=== PATIENT | male | born 1950 | race Caucasian/White ===

== ENCOUNTER → 2016-08-05 | Outpatient (CLI) | payer BC ==
[2016-08-05 10:53] LABS: BASO ABS # 0.06 K/uL (0-0.2); COMPLETE YES; EOS % 2.3 %; IG% 0.3 %; LYMPH % 31.6 %; LYMPH ABS # 1.94 K/uL (1.2-3.4); MEAN CELL VOLUME 92.3 fL (80-100); MEAN CORPUSCULAR HEMOGLOBIN 30.7 pg (25-34); MEAN CORPUSCULAR HGB CONC 33.3 g/dl (32-36); MONO % 9.6 %; NEUT % 55.2 %; PLATELET COUNT 342 K/uL (130-400); RED BLOOD COUNT 4.66 M/uL (4.7-6.1); WHITE BLOOD COUNT 6.14 K/uL (4.8-10.8)
[2016-08-05 11:26] LABS: BLOOD UREA NITROGEN 15 mg/dl (7-18); BUN/CREATININE RATIO 16.5 (10-20); CALCIUM 8.3 mg/dl (8.5-10.1); CARBON DIOXIDE 25 mmol/L (21-32); CHLORIDE 108 mmol/L (98-107); CREATININE 0.93 mg/dl (0.60-1.40); GLUCOSE 100 mg/dl (70-99); POTASSIUM 4.3 mmol/L (3.5-5.1); SODIUM 140 mmol/L (136-145)
--- NOTE | 2016-08-10 12:39 | CODING QUERY MEDICAL NECESSITY ---
SUPPORTING DIAGNOSIS NEEDED A supporting diagnosis is required for the test/procedure performed on this patient in order for us to be reimbursed by the patient's insurance. Please provide a supporting diagnosis for the following test/procedure listed below next to the test name along with your signature. *If there is no additional diagnosis for this patient that would support the following test/procedure please document that below next to the test/procedure. Test(s)/Procedure(s) that require a supporting diagnosis: DOS 08/05 * Vitamin D DIAGNOSIS: Provider Signature: Date: Thank you Hue Eduardo Health Information Management Once completed, please kindly fax back to [phone] For questions please call [phone]
== END | disposition home or self-care (01) ==
LOC: C.LABBC 08:49
PROVIDERS: ATTEND Internal Medicine Geriatric Medicine
DX: Z00.00 Encounter for general adult medical examination without abnormal findings (principal); I10 Essential (primary) hypertension; D64.9 Anemia, unspecified

== ENCOUNTER → 2017-02-07 | Outpatient (CLI) | payer BC ==
[2017-02-07 13:30] LABS: BASO % 0.8 %; BASO ABS # 0.05 K/uL (0-0.2); COMPLETE YES; EOS % 1.8 %; HEMATOCRIT 44.2 % (42-52); IG% 0.2 %; LYMPH % 28.5 %; LYMPH ABS # 1.89 K/uL (1.2-3.4); MEAN CELL VOLUME 93.8 fL (80-100); MEAN CORPUSCULAR HEMOGLOBIN 30.4 pg (25-34); MEAN CORPUSCULAR HGB CONC 32.4 g/dl (32-36); MEAN PLATELET VOLUME 9.3 fL (7.4-10.4); NEUT % 59.7 %; PLATELET COUNT 354 K/uL (130-400); RED BLOOD COUNT 4.71 M/uL (4.7-6.1); WHITE BLOOD COUNT 6.63 K/uL (4.8-10.8)
[2017-02-07 13:53] LABS: BLOOD UREA NITROGEN 13 mg/dl (7-18); BUN/CREATININE RATIO 12.8 (10-20); CALCIUM 8.5 mg/dl (8.5-10.1); CARBON DIOXIDE 25 mmol/L (21-32); CHLORIDE 109 mmol/L (98-107); GLUCOSE 99 mg/dl (70-99); POTASSIUM 4.1 mmol/L (3.5-5.1); SODIUM 140 mmol/L (136-145)
[2017-02-07 13:58] LABS: CHOLESTEROL 188 mg/dl (0-200); CHOLESTEROL/HDL RATIO 3.5; HDL CHOLESTEROL 54 mg/dl; LDL CHOLESTEROL CALCULATED 119 mg/dl; TRIGLYCERIDES 74 mg/dl (0-150); VERY LOW DENSITY LIPOPROT CALC 15 mg/dl
== END | disposition home or self-care (01) ==
LOC: C.LABBC 09:53
PROVIDERS: ATTEND Internal Medicine Geriatric Medicine
DX: Z11.59 Encounter for screening for other viral diseases (principal); N40.0 Benign prostatic hyperplasia without lower urinary tract symptoms; I10 Essential (primary) hypertension; I65.29 Occlusion and stenosis of unspecified carotid artery; D64.9 Anemia, unspecified; E78.5 Hyperlipidemia, unspecified

== ENCOUNTER → 2017-08-18 | Outpatient (CLI) | payer BC ==
[2017-08-18 14:25] LABS: BASO ABS # 0.07 K/uL (0-0.2); EOS % 2.1 %; EOS ABS # 0.14 K/uL (0-0.5); HEMATOCRIT 41.9 % (42-52); HEMOGLOBIN 14.1 g/dL (14.0-18.0); IG# 0.02 K/uL (0.00-0.02); LYMPH % 31.3 %; MEAN CELL VOLUME 91.9 fL (80-100); MEAN CORPUSCULAR HEMOGLOBIN 30.9 pg (25-34); MEAN CORPUSCULAR HGB CONC 33.7 g/dl (32-36); MEAN PLATELET VOLUME 9.2 fL (7.4-10.4); MONO % 9.7 %; MONO ABS # 0.65 K/uL (0.11-0.59); NEUT % 55.6 %; NEUT ABS # 3.74 K/uL (1.4-6.5); PLATELET COUNT 344 K/uL (130-400); RED CELL DISTRIBUTION WIDTH CV 13.6 % (11.5-14.5); RED CELL DISTRIBUTION WIDTH SD 45.5 fL (36.4-46.3); WHITE BLOOD COUNT 6.72 K/uL (4.8-10.8)
[2017-08-18 15:27] LABS: BLOOD UREA NITROGEN 18 mg/dl (7-18); CALCIUM 8.5 mg/dl (8.5-10.1); CARBON DIOXIDE 27 mmol/L (21-32); CREATININE 1.07 mg/dl (0.60-1.40); GLUCOSE 98 mg/dl (70-99); POTASSIUM 4.2 mmol/L (3.5-5.1); SODIUM 138 mmol/L (136-145)
== END | disposition home or self-care (01) ==
LOC: C.LABBC 09:18
PROVIDERS: ATTEND Internal Medicine Geriatric Medicine
DX: I10 Essential (primary) hypertension (principal); G43.909 Migraine, unspecified, not intractable, without status migrainosus; I65.29 Occlusion and stenosis of unspecified carotid artery; R97.20 Elevated prostate specific antigen [PSA]; D64.9 Anemia, unspecified; E78.5 Hyperlipidemia, unspecified

== ENCOUNTER → 2017-10-03 | Day surgery (SDC) | payer BC ==
[2017-09-21 16:36] VITALS: Ht 180.3 cm; Wt 106.8 kg
[~2017-10-03] VITALS: Ht 180.3 cm; Wt 106.8 kg
[~2017-10-03] MED LIST: ASPI81TA28 PO; CETI10TA84 PO; CHOL2000 PO; COEN100C7 PO; CYAN10005 PO; FLUT50SP45 NAE; LIDOCAINE HCL 2% 2 ML VIAL (20MG/ML) ONE; LISI20TA3 PO; LYCO10CA PO; MIDAZOLAM HCL 1 MG/ML 2ML VIAL ONE; MISC1CAP58 PO; NABU500T3 PO; PROPOFOL IV EMULSION 10 MG/ML 20 ML VIAL ONE; SELE200T2 PO; SODIUM CHLORIDE 0.9% 500ML 500 ML IV ONE; VERA120C2 PO; VERA240C2 PO; ZINC1TAB PO
--- NOTE | 2017-10-03 10:15 | Endo History and Physical ---
History & Physical Date of Service: October 03, 2017. Chief Complaint: SCREENING Referring Physician: DR Lidia VANG History of Present Illness 67 yo CM who presents for screening colonoscopy. Past Surgical History Hx Cardiac Surgery: Yes (R CAROTID ARTERY-BLOCKAGE, 05/2003-[facility]) Hx Internal Defibrillator: No Hx Pacemaker: No Hx Abdominal Surgery: Yes (2009-UMBILICIAL HERNIA REPAIR) Hx of Implantable Prosthesis: No Hx Cancer Surgery: No Hx Thoracic Surgery: No Hx Orthopedic: No Hx Urinary Tract Surgery: No Family History IBD Social History Smoking Status: Former Smoker Hx Substance Use: No Hx Alcohol Use: No Allergies Coded Allergies: Codeine (Verified Allergy, Unknown, RASH/HIVES, 10/03/17) Uncoded Allergies: CONTRASTMEDIA (Allergy, Mild, HEADACHE, 06/19/09) Current Medications Reported Home Medications Medications Dose Route/Sig Max Daily Dose Days Date Category Verapamil Hcl Er (Verapamil Hcl) 120 Mg Cap 1 Tab PO HS 09/21/17 Reported Zinc (Zinc Gluconate) 50 Mg Tab 1 Tab PO DAILY 09/21/17 Reported Vitamin D3 (Cholecalciferol) 2,000 Unit Cap 1 Cap PO DAILY 30 09/21/17 Reported Vitamin B-12 (Cyanocobalamin) 1,000 Mcg Tab 1,000 Mcg PO DAILY 09/21/17 Reported Verapamil Hcl Er (Verapamil Hcl) 240 Mg Cap 1 Cap PO QAM 30 09/21/17 Reported Selenimin-200 (Selenium) 200 Mcg Tab 1 Tab PO DAILY 09/21/17 Reported Relafen (Nabumetone) 500 Mg Tab 500 Mg PO DAILY PRN 09/21/17 Reported Lycopene 10 Mg Cap 1 Cap PO DAILY 09/21/17 Reported Lutein 20 (Misc Natural Products) 1 Cap Cap 1 Tab PO DAILY 09/21/17 Reported Prinivil (Lisinopril) 20 Mg Tab 1 Tab PO BID 30 09/21/17 Reported Allergy Nasal [place] 24 Ho (Fluticasone Propionate (Nasal)) 50 Mcg/Act Spr 2 Sprays ANAYA DAILY PRN 09/21/17 Reported Coq10 (Coenzyme Q10 (Ubidecarenone)) 100 Mg Cap 1 Tab PO DAILY 09/21/17 Reported Aspirin Ec (Aspirin) 81 Mg Tab 81 Mg PO DAILY 09/21/17 Reported Vital Signs Weight (Kilograms): 106.82 Height (Feet): 5 Height (Inches): 11 Date Time Temp Pulse Resp B/P (MAP) Pulse Ox O2 Delivery O2 Flow Rate FiO2 10/03/17 09:41 37.0 78 18 168/97 (120) 95 Room Air Physical Exam General Appearance: WD/WN, no apparent distress Respiratory/Chest: Auscultation: breath sounds normal Cardiovascular: Heart Auscultation: RRR Abdomen: Bowel Sounds: normal Inspection & Palpation: soft, non-distended, no tenderness, guarding & rebound Assessment and Plan Assessment: 67 yo CM who presents for screening colonoscopy. Plan: Proceed with colonoscopy.
--- NOTE | 2017-10-03 10:56 | GI REPORT ---
Patient Name: Fernando Carmichael Procedure Date: 10/03/2017 9:59 AM Date of : 1950 Admit Type: Outpatient Age: 67 Gender: Male Attending MD: Eduardo Rizzo DO Procedure: Colonoscopy Providers: Eduardo Rizzo DO Referring MD: Alex Krueger Indications: Screening for colorectal malignant neoplasm Medicines: Monitored Anesthesia Care Complications: No immediate complications. Estimated Blood Loss: Estimated blood loss: none. Procedure: Pre-Anesthesia Assessment: - Prior to the procedure, a History and Physical was performed, and patient medications and allergies were reviewed. The patient's tolerance of previous anesthesia was also reviewed. The risks and benefits of the procedure and the sedation options and risks were discussed with the patient. All questions were answered, and informed consent was obtained. Prior Anticoagulants: The patient has taken aspirin, last dose was 14 days prior to procedure. ASA Grade Assessment: III - A patient with severe systemic disease. After reviewing the risks and benefits, the patient was deemed in satisfactory condition to undergo the procedure. After I obtained informed consent, the scope was passed under direct vision. Throughout the procedure, the patient's blood pressure, pulse, and oxygen saturations were monitored continuously. The scope was introduced through the anus and advanced to the terminal ileum. The colonoscopy was performed without difficulty. The patient tolerated the procedure well. The quality of the bowel preparation was good. The terminal ileum, ileocecal valve, appendiceal orifice, and rectum were photographed. Findings: The perianal and digital rectal examinations were normal. Multiple small-mouthed diverticula were found in the sigmoid colon. Non-bleeding internal hemorrhoids were found during retroflexion. The hemorrhoids were small. Impression: - Diverticulosis in the sigmoid colon. - Non-bleeding internal hemorrhoids. - No specimens collected. Recommendation: - Resume previous diet. - Continue present medications. - Repeat colonoscopy in 5 years for surveillance. - Return to primary care physician as previously scheduled. Eduardo Rizzo DO 10/03/2017 10:55:49 AM This report has been signed electronically. Note Initiated On: 10/03/2017 9:59 AM Number of Addenda: 0 I attest to the content of the Intraoperative Record and orders documented therein, exceptions below {[id number]}
--- NOTE | 2017-10-03 10:57 | Discharge Instructions ---
Endoscopy Patient Instructions Date / Procedure(s) Performed October 03, 2017. Colonoscopy Allergy Information Coded Allergies: Codeine (Verified Allergy, Unknown, RASH/HIVES, 10/03/17) Uncoded Allergies: CONTRASTMEDIA (Allergy, Mild, HEADACHE, 06/19/09) Discharge Date / Findings October 03, 2017. Diverticulosis Internal hemorrhoids Medication Instructions Stopped Medication(s): ASPIRIN 81MG 09/19/17 OK to resume all medications today as prescribed Reported Home Medications Medications Dose Route/Sig Max Daily Dose Days Date Category Verapamil Hcl Er (Verapamil Hcl) 120 Mg Cap 1 Tab PO HS 09/21/17 Reported Zinc (Zinc Gluconate) 50 Mg Tab 1 Tab PO DAILY 09/21/17 Reported Vitamin D3 (Cholecalciferol) 2,000 Unit Cap 1 Cap PO DAILY 30 09/21/17 Reported Vitamin B-12 (Cyanocobalamin) 1,000 Mcg Tab 1,000 Mcg PO DAILY 09/21/17 Reported Verapamil Hcl Er (Verapamil Hcl) 240 Mg Cap 1 Cap PO QAM 30 09/21/17 Reported Selenimin-200 (Selenium) 200 Mcg Tab 1 Tab PO DAILY 09/21/17 Reported Relafen (Nabumetone) 500 Mg Tab 500 Mg PO DAILY PRN 09/21/17 Reported Lycopene 10 Mg Cap 1 Cap PO DAILY 09/21/17 Reported Lutein 20 (Misc Natural Products) 1 Cap Cap 1 Tab PO DAILY 09/21/17 Reported Prinivil (Lisinopril) 20 Mg Tab 1 Tab PO BID 30 09/21/17 Reported Allergy Nasal [place] 24 Ho (Fluticasone Propionate (Nasal)) 50 Mcg/Act Spr 2 Sprays ANAYA DAILY PRN 09/21/17 Reported Coq10 (Coenzyme Q10 (Ubidecarenone)) 100 Mg Cap 1 Tab PO DAILY 09/21/17 Reported Aspirin Ec (Aspirin) 81 Mg Tab 81 Mg PO DAILY 09/21/17 Reported Provider Instructions Activity Restrictions - No exercising or heavy lifting for 24 hours. - Do not drink alcohol the day of the procedure. - Do not drive a car or operate machinery until the day after the procedure. - Do not make any important decisions or sign important papers in 24 hours after the procedure. Following Day: - Return to full activity which may include returning to work/school. Diet Start your diet with liquids and light foods (jello, soup, juice, toast). Then eat your usual diet if not nauseated. Treatment For Common After Affects For mild abdominal pain, bloating, or excessive gas: - Rest - Eat lightly - Lie on right side Follow-Up Information Follow-up with DR Lidia VANG as scheduled Anesthesia Information What You Should Know You have had a procedure that required some medicine to reduce anxiety and discomfort. This treatment is called moderate sedation. After receiving the treatment, you may be sleepy, but you will be able to breathe on your own. The effects of the treatment may last for several hours. Follow these instructions along with Activity/Diet recommendations noted above: * Do NOT do anything where dizziness or clumsiness would be dangerous. * Rest quietly at home today, then you can be up and about tomorrow. * Have a responsible person stay with you the rest of today. * You may have had an I.V. today. If so, you may take the dressing off later today. Recommendations Call your doctor if: * Trouble breathing * Continuous vomiting for more than 24 hours * Temperature above 101 degrees * Severe abdominal pain or bloating * Pain not relieved by pain medicine ordered * There is increased drainage or redness from any incision * A large amount of rectal bleeding greater than 2-3 tablespoons. (If you had a polyp/s removed or have hemorrhoids, a small amount of blood - from the rectum is to be expected.) * You have any unanswered questions or concerns. IN THE EVENT OF A SERIOUS EMERGENCY, GO TO THE NEAREST EMERGENCY ROOM Your discharge instructions were prepared by provider Eduardo Rizzo. Patient Instructions Signature Page Fernando Carmichael Patient (or Guardian) Signature/Date: I have read and understand the instructions given to me by my caregivers. Caregiver/RN/Doctor Signature/Date: The above-named patient and/or guardian has received patient instructions on this date. + Original Patient Signature Page (only) stays with chart. Please make copy for patient.
--- NOTE | 2017-10-03 11:06 | Anesthesiology Progress Note ---
Anesthesia Post Op Note Date & Time October 03, 2017 at 11:06 Vital Signs Pain Intensity: 0 Vital Signs Past 12 Hours Date Time Temp Pulse Resp B/P (MAP) Pulse Ox O2 Delivery O2 Flow Rate FiO2 10/03/17 10:50 75 16 135/71 (92) 16 Room Air 10/03/17 09:41 37.0 78 18 168/97 (120) 95 Room Air Notes Mental Status: alert / awake / arousable, participated in evaluation Pt Amnestic to Procedure: Yes Nausea / Vomiting: adequately controlled Pain: adequately controlled Airway Patency, RR, SpO2: stable & adequate BP & HR: stable & adequate Hydration State: stable & adequate Anesthetic Complications: no major complications apparent
[2017-10-03 11:52] VITALS: BP 132/78; PULSE 78; O2SAT 95
== END | disposition home or self-care (01) ==
LOC: C.GI 09:05
PROVIDERS: ATTEND Internal Medicine
DX: Z12.11 Encounter for screening for malignant neoplasm of colon (principal); K57.30 Diverticulosis of large intestine without perforation or abscess without bleeding; K64.8 Other hemorrhoids; I10 Essential (primary) hypertension; Z88.5 Allergy status to narcotic agent; Z88.8 Allergy status to other drugs, medicaments and biological substances; Z98.890 Other specified postprocedural states; Z79.899 Other long term (current) drug therapy; Z87.891 Personal history of nicotine dependence; Z79.82 Long term (current) use of aspirin

== ENCOUNTER 2020-12-29 07:50 | Inpatient (IN) ==
--- NOTE | 2020-12-22 10:30 | PAT Medication Instructions ---
Medication Instructions Date of Service December 22, 2020 Home Medications Medication Instructions Recorded lisinopril 20 mg tablet 20 mg PO BID #180 tab 04/27/20 verapamil 120 mg tablet,extended 120 mg PO HS #90 tab 04/27/20 release verapamil 240 mg tablet,extended 240 mg PO QAM #90 tab 04/27/20 release cyanocobalamin (vitamin B-12) 1,000 mcg tablet 1,000 mcg PO PM lutein 20 mg tablet 20 mg PO PM niacin 500 mg tablet 500 mg PO PM selenium 200 mcg capsule 200 mcg PO PM folic acid 400 mcg tablet 400 mcg PO PM lycopene 10 mg capsule 10 mg PO PM mometasone 0.1 % topical cream 1 appln TOP BID PRN zinc gluconate 50 mg tablet 50 mg PO PM naproxen sodium 220 mg capsule (Aleve) 220 mg PO BID PRN lisinopril 20 mg tablet 20 mg PO BID melatonin 5 mg tablet 5 mg PO HS verapamil 120 mg tablet,extended release 120 mg PO HS verapamil 240 mg tablet,extended release 240 mg PO QAM carica papaya (Papaya Enzyme) 4 tab PO TID cholecalciferol (vitamin D3) 50 mcg (2,000 unit) tablet 1,000 unit PO PM letty root 325 mg-pyridoxine HCl (vitamin B6) 25 mg capsule 1.5 cap PO QPM lysine 500 mg tablet (L-Lysine) 500 mg PO QPM resveratrol 250 mg capsule 250 mg PO QPM Quercetin Otc 500 mg PO QPM ASK your surgeon for instructions naproxen sodium 220 mg capsule (Aleve) 220 mg PO BID PRN STOP taking 2 weeks before surgery (or as soon as possible if surgery is within 2 weeks) lutein 20 mg tablet 20 mg PO PM selenium 200 mcg capsule 200 mcg PO PM lycopene 10 mg capsule 10 mg PO PM carica papaya (Papaya Enzyme) 4 tab PO TID letty root 325 mg-pyridoxine HCl (vitamin B6) 25 mg capsule 1.5 cap PO QPM lysine 500 mg tablet (L-Lysine) 500 mg PO QPM resveratrol 250 mg capsule 250 mg PO QPM Quercetin Otc 500 mg PO QPM STOP taking 48 hours before surgery niacin 500 mg tablet 500 mg PO PM STOP taking 24 hours before surgery mometasone 0.1 % topical cream 1 appln TOP BID PRN DO NOT take the morning of surgery lisinopril 20 mg tablet 20 mg PO BID Take morning of surgery With a small sip of water, OTHERWISE NOTHING TO EAT OR DRINK AFTER MIDNIGHT: verapamil 240 mg tablet,extended release 240 mg PO QAM Take evening before surgery cyanocobalamin (vitamin B-12) 1,000 mcg tablet 1,000 mcg PO PM folic acid 400 mcg tablet 400 mcg PO PM zinc gluconate 50 mg tablet 50 mg PO PM lisinopril 20 mg tablet 20 mg PO BID melatonin 5 mg tablet 5 mg PO HS verapamil 120 mg tablet,extended release 120 mg PO HS cholecalciferol (vitamin D3) 50 mcg (2,000 unit) tablet 1,000 unit PO PM Other Notes If you have any questions please call us at [phone] or [phone] or [phone] or [phone]
--- NOTE | 2020-12-25 09:52 | Anesthesiology Consultation ---
Date of Service December 25, 2020 Assessment & Plan (1) Encounter for pre-operative examination: - COVID screening: Per assessment on 12/25: Travel screen negative, no known COVID-19 positive contacts or current COVID-19 related symptoms. Surgeon arrang ing preop COVID testing (will be doing at [facility] 12/25). Awaiting results. - S/P Open ventral hernia repair (12/30/19): LMA#5, atraumatic at [facility] - PCP office visit (11/19/20): "right carotid restenoses: He has follow-up visit scheduled with vascular surgery later this month, which he plans to keep. He knows to go the emergency department with any new neurologic symptoms. vertebral stenosis: Follow-up with vascular surgery." - Vascular office visit (11/30/20): "History of R sided carotid artery stenosis underwent R CEA in 2013 presents to vascular surgery clinic for follow up today having undergone a CTA earlier this month. He initially presented November 12 out of concern for transient change in his vision (amaurosis episode) where he describes the area of his vision "between 7 and 9 oclock" when mera for a brief period before returning. He has since been asymptomatic and notes no complaints at this visit.. Of note, his CT performed prior to this visit showed multiple areas concerning for plaque ulceration with craters visible on the CT films.. Given his history, he would benefit from a re do of his carotid endarterectomy, however we did discuss the possibility of needing to potentially perform a transposition of either vein or PTFE should there be too much scar tissue that precludes completion of standard endarterectomy." - ASA instructions per surgeon/prescriber Chart Review Chart Review: Acceptable Risk for Surgery and Patient seen in Pre Admission Testing Teaching & Discussion Pre-Anesthesia Teaching/Discussion Notes: Instructed NPO after midnight before surgery,except medications with 15 cc of water. Medication instructions provided according to the [facility] guidelines. History Surgery Operation Date: 12/29/20 08:00 Proposed Procedures p Redo Right Carotid Endarterectomy, Possible Interposition Graft - Cong Manuel MD Height/Weight Height: 5 ft 10.5 in Weight: 104.8 kg Allergies Allergy/AdvReac Type Severity Reaction Status Date / Time codeine Allergy Mild Rash, hives Verified 12/23/20 09:04 homatropine Allergy Mild Rash Verified 12/23/20 09:04 [From Hycodan (with homatropin)] hydrocodone Allergy Mild Rash Verified 12/23/20 09:04 [From Hycodan (with homatropin)] amoxicillin AdvReac Intermediate Diarrhea, Verified 12/23/20 09:04 GI upset clavulanic acid AdvReac Intermediate Diarrhea, Verified 12/23/20 09:04 [From Augmentin] GI upset losartan AdvReac Intermediate Muscle Verified 12/23/20 09:04 cramping atorvastatin [From Lipitor] AdvReac Mild Myalgia Verified 12/23/20 09:04 omeprazole AdvReac Mild Sore Verified 12/23/20 09:04 "kidneys" (kidney crystals), cramping simvastatin [From Zocor] AdvReac Mild Myalgia Verified 12/23/20 09:04 Medications Home Medications Medication Instructions Recorded Confirmed Last Taken cyanocobalamin (vitamin B-12) 1,000 mcg PO PM tab 03/12/19 12/21/20 12/22/19 1,000 mcg tablet lutein 20 mg tablet 20 mg PO PM tab 03/12/19 12/21/20 12/22/19 niacin 500 mg tablet 500 mg PO PM 03/12/19 12/21/20 12/22/19 selenium 200 mcg capsule 200 mcg PO PM 03/12/19 12/21/20 12/22/19 folic acid 400 mcg tablet 400 mcg PO PM 03/13/19 12/21/20 12/29/19 19:00 lycopene 10 mg capsule 10 mg PO PM cap 05/01/19 12/21/20 12/29/19 mometasone 0.1 % topical cream 1 appln TOP BID PRN gm 05/01/19 12/21/20 12/26/19 zinc gluconate 50 mg tablet 50 mg PO PM 11/29/19 12/21/20 12/22/19 naproxen sodium 220 mg capsule 220 mg PO BID PRN 12/10/19 12/21/20 Unknown (Aleve) lisinopril 20 mg tablet 20 mg PO BID #180 tab 04/27/20 12/21/20 Unknown melatonin 5 mg tablet 5 mg PO HS 04/27/20 12/21/20 Unknown verapamil 120 mg tablet,extended 120 mg PO HS #90 tab 04/27/20 12/21/20 Unknown release verapamil 240 mg tablet,extended 240 mg PO QAM #90 tab 04/27/20 12/21/20 Unknown release carica papaya (Papaya Enzyme) 4 tab PO TID tab 10/27/20 12/21/20 Unknown cholecalciferol (vitamin D3) 50 1,000 unit PO PM #30 tab 10/27/20 12/21/20 Unknown mcg (2,000 unit) tablet letty root 325 mg-pyridoxine HCl 1.5 cap PO QPM cap 10/27/20 12/21/20 Unknown (vitamin B6) 25 mg capsule lysine 500 mg tablet (L-Lysine) 500 mg PO QPM 10/27/20 12/21/20 Unknown resveratrol 250 mg capsule 250 mg PO QPM 10/27/20 12/21/20 Unknown Quercetin Otc 500 mg PO QPM 12/21/20 12/21/20 Unknown aspirin 81 mg capsule 81 mg PO HS 12/25/20 12/25/20 Unknown Past Medical History Medical History Anemia Arteriosclerosis of carotid artery s/p Right CEA (2003) BPH without obstruction/lower urinary tract symptoms Chronic rhinitis Degenerative disc disease Lower back Dyslipidemia Elevated prostate specific antigen (PSA) declined Urology Evaluation Headache, migraine Hearing loss Right ear History of cataract History of COVID-19 Possible COVID > spouse was positive 07/22/20, pt at that time had symptoms of body aches, mild fever, night sweats, sore throat (pt tested negative ten days after symptoms onset) > symptoms resolved Hypertension Kidney stones Migraine Obesity Stomach ulcer 1989 No known hx of blood transfusion Exercise / Class Metabolic Activity II 4-5 Yardwork/Stairs/Walk up hill Past Family History Family History Mother , age 67 Osteoporosis Crohn's disease Cardiac disorder Myocardial infarction Father , age 77 Leukemia Cancer Lymphoma Brother Peripheral vascular disease Hypertension Grandmother (Maternal) Family history of diabetes mellitus Past Surgical History Surgical History History of carotid endarterectomy Right (2003) History of cataract surgery Right History of esophagogastroduodenoscopy (EGD) History of tonsillectomy 1952 History of tooth extraction History of umbilical hernia repair 2009 History of ventral hernia repair Open ventral hernia repair (12/30/19): LMA#5, atraumatic at [facility] Hx of colonoscopy 2019 Past Anesthesia History Other (Post-operative sweating with no fever after 2003 right CEA (CT). No similar issues with other surgeries/anesthesia. Had GA open ventral hernia repair at [facility] without issue.) Social History Smoking Status: Former smoker tobacco type: cigarettes Do You Dip or Chew Tobacco: No Smoking End Date: QUIT Hx Alcohol Use: No Hx Substance Use: No substance use type: does not use Review of Systems Patient denies chest pain, shortness of breath, dyspnea on exertion, fever, chills, cough, wheezing, palpitations. Physical Exam Vital Signs VITALS BP 145/77 P 59 TEMP 98.4 SP02 96%RA RESP 16 PHYSICAL Full cervical extension range of motion. Full TMJ range of motion. TMD 3 finger breaths (difficult to palpate) Mallampati Score 2 Dentition: intact Lungs: clear throughout to auscultation Cardiac: regular rate and rhythm, no murmurs noted Spine: normal Carotid arteries: negative bruit Extremities: no edema Lab Results Anesthesia Preop Results Results Anesthesia Widget: WBC 8.97 K/uL (4.8-10.8) 12/25/20 Hgb 13.4 g/dL (14.0-18.0) L 12/25/20 Hct 40.6 % (42-52) L 12/25/20 Plt 359 K/uL (130-400) 12/25/20 Na 139 mmol/L (136-145) 12/25/20 K 4.1 mmol/L (3.5-5.1) 12/25/20 Cl 108 mmol/L (98-107) H 12/25/20 CO2 25 mmol/L (21-32) 12/25/20 BUN 12 mg/dl (7-18) 12/25/20 Creat 0.88 mg/dl (0.6-1.4) 12/25/20 Glucose Level 85 mg/dl (70-99) 12/25/20 PT 9.8 Seconds (9.0-12.0) 12/25/20 PTT 25.2 Seconds (21.0-31.0) 12/25/20 INR 1.0 (0.9-1.1) 12/25/20 Blood Type O Positive 12/25/20 Antibody Screen NEGATIVE 12/25/20 Testing Electrocardiogram Date: 12/25/20 NSR at 65bpm. unconfirmed report. Chest X-Ray Date: 12/25/20 Findings: + NAD Echocardiogram Date: 11/13/20 EF 50 to 55%. No regional wall motion abnormality. Mild TR. Trace to mild OK. Mild aortic valve thickening. Other Testing Neck CTA (11/18/20): Approximately 50% focal stenosis within the distal right common carotid artery. No significant stenosis within the bilateral internal carotid arteries. Focal area of severe stenosis within the intracranial portion of the distal right vertebral artery without occlusion. The [id number] is widely patent. 4. There are 3 focal intimal flaps seen within the distal right common carotid artery, proximal right internal carotid artery, and proximal right external carotid artery. This could represent small focal incomplete chronic dissections versus penetrating ulcers.
[~2020-12-29 07:50] MED LIST changes: -ASPI81TA28 PO; +CEFAZOLIN 2,000 MG/15 ML SYR IV SCH; -CETI10TA84 PO; -CHOL2000 PO; -COEN100C7 PO; -CYAN10005 PO; -FLUT50SP45 NAE; -LIDOCAINE HCL 2% 2 ML VIAL (20MG/ML) ONE; -LISI20TA3 PO; +LR 15ML/HR IV SCH; -LYCO10CA PO; -MIDAZOLAM HCL 1 MG/ML 2ML VIAL ONE; -MISC1CAP58 PO; -NABU500T3 PO; -PROPOFOL IV EMULSION 10 MG/ML 20 ML VIAL ONE; -SELE200T2 PO; -SODIUM CHLORIDE 0.9% 500ML 500 ML IV ONE; -VERA120C2 PO; -VERA240C2 PO; -ZINC1TAB PO
--- NOTE | 2020-12-29 07:51 | History & Physical Report ---
Date of Service December 29, 2020 Assessment & Plan (1) Recurrent stenosis of right carotid artery: Plan: Patient for a redo right carotid endarterectomy. I have discussed the risks options and benefits of the procedure with the patient including to increase risk of local nerve injury. The patient understands the risks options and benefits and agrees to the procedure. History of Present Illness Chief Complaint: Restenosis of right carotid artery Primary Care Provider: Santana Dickinson DO Mr. Carmichael is an elderly male who presents to vascular surgery clinic as a new patient in consultation for right carotid artery restenosis noted on his annual carotid ultrasound, as well as symptoms of right eye amaurosis which occurred about 6 weeks ago. Patient underwent a right carotid endarterectomy with bovine [place] [address] Shailesh Richey. He states that that as far as he is aware, his ultrasounds since his procedure have been okay. His results from carotid ultrasound in October 2019 do not indicate any evidence of restenosis. His ultrasound from last week indicates right distal common carotid and bulb s tenosis of over 70% by velocity criteria. Patient states that he was doing his normal daily activities and developed a sudden onset of a veras shaped mera area around 7:00 in his right eye vision. He states that it lasted between 10 and 30 seconds, and then completely resolved. He states that he had symptoms of "tunnel vision" in his right eye before undergoing his carotid endarterectomy in 2003. He states this was similar but not exactly the same. He denies any other neurological concerns including unilateral headache, unilateral extremity weakness numbness or tingling, facial droop, difficulty speaking or swallowing, dizziness, other concerns. Allergies Allergy/AdvReac Type Severity Reaction Status Date / Time codeine Allergy Mild Rash, hives Verified 12/23/20 09:04 homatropine Allergy Mild Rash Verified 12/23/20 09:04 [From Hycodan (with homatropin)] hydrocodone Allergy Mild Rash Verified 12/23/20 09:04 [From Hycodan (with homatropin)] amoxicillin AdvReac Intermediate Diarrhea, Verified 12/23/20 09:04 GI upset clavulanic acid AdvReac Intermediate Diarrhea, Verified 12/23/20 09:04 [From Augmentin] GI upset losartan AdvReac Intermediate Muscle Verified 12/23/20 09:04 cramping atorvastatin [From Lipitor] AdvReac Mild Myalgia Verified 12/23/20 09:04 omeprazole AdvReac Mild Sore Verified 12/23/20 09:04 "kidneys" (kidney crystals), cramping simvastatin [From Zocor] AdvReac Mild Myalgia Verified 12/23/20 09:04 Home Medications Medication Instructions Recorded Confirmed Type cyanocobalamin (vitamin B-12) 1,000 mcg PO PM tab 03/12/19 12/21/20 History 1,000 mcg tablet lutein 20 mg tablet 20 mg PO PM tab 03/12/19 12/21/20 History niacin 500 mg tablet 500 mg PO PM 03/12/19 12/21/20 History selenium 200 mcg capsule 200 mcg PO PM 03/12/19 12/21/20 History folic acid 400 mcg tablet 400 mcg PO PM 03/13/19 12/21/20 History lycopene 10 mg capsule 10 mg PO PM cap 05/01/19 12/21/20 History mometasone 0.1 % topical cream 1 appln TOP BID PRN gm 05/01/19 12/21/20 History zinc gluconate 50 mg tablet 50 mg PO PM 11/29/19 12/21/20 History naproxen sodium 220 mg capsule 220 mg PO BID PRN 12/10/19 12/21/20 History (Aleve) lisinopril 20 mg tablet 20 mg PO BID #180 tab 04/27/20 12/21/20 Rx melatonin 5 mg tablet 5 mg PO HS 04/27/20 12/21/20 History verapamil 120 mg tablet,extended 120 mg PO HS #90 tab 04/27/20 12/21/20 Rx release verapamil 240 mg tablet,extended 240 mg PO QAM #90 tab 04/27/20 12/21/20 Rx release carica papaya (Papaya Enzyme) 4 tab PO TID tab 10/27/20 12/21/20 History cholecalciferol (vitamin D3) 50 1,000 unit PO PM #30 tab 10/27/20 12/21/20 History mcg (2,000 unit) tablet letty root 325 mg-pyridoxine HCl 1.5 cap PO QPM cap 10/27/20 12/21/20 History (vitamin B6) 25 mg capsule lysine 500 mg tablet (L-Lysine) 500 mg PO QPM 10/27/20 12/21/20 History resveratrol 250 mg capsule 250 mg PO QPM 10/27/20 12/21/20 History Quercetin Otc 500 mg PO QPM 12/21/20 12/21/20 History aspirin 81 mg capsule 81 mg PO HS 12/25/20 12/25/20 History Past Med/Surg History Medical History Anemia Arteriosclerosis of carotid artery s/p Right CEA (2003) BPH without obstruction/lower urinary tract symptoms Chronic rhinitis Degenerative disc disease Lower back Dyslipidemia Elevated prostate specific antigen (PSA) declined Urology Evaluation Headache, migraine Hearing loss Right ear History of cataract History of COVID-19 Possible COVID > spouse was positive 07/22/20, pt at that time had symptoms of body aches, mild fever, night sweats, sore throat (pt tested negative ten days after symptoms onset) > symptoms resolved Hypertension Kidney stones Migraine Obesity Stomach ulcer 1989 No known hx of blood transfusion Surgical History History of carotid endarterectomy Right (2003) History of cataract surgery Right History of esophagogastroduodenoscopy (EGD) History of tonsillectomy 1952 History of tooth extraction History of umbilical hernia repair 2009 History of ventral hernia repair Open ventral hernia repair (12/30/19): LMA#5, atraumatic at [facility] Hx of colonoscopy 2019 Family History Mother , age 67 Osteoporosis Crohn's disease Cardiac disorder Myocardial infarction Father , age 77 Leukemia Cancer Lymphoma Brother Peripheral vascular disease Hypertension Grandmother (Maternal) Family history of diabetes mellitus Social History Smoking Status: Former smoker Tobacco Type: Cigarettes Age Started Using Tobacco: 17; Age Quit Using Tobacco: 19; packs per day: 1; Years Smoked: 3; Second Hand Exposure: Yes (FATHER SMOKED/SMOKES AT WORK ); Hx Alcohol Use: No Hx Substance Use: No Preferred Language: Lao Communication Ability: Effective Visual Impairment: Limited Hearing Ability: Hard of Hearing 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 Member Required: No Beliefs That Will Affect Care: None marital status: Current Living Situation: Spouse current occupational status: retired 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 He is alert and oriented without any focal deficits. Head is normocephalic atraumatic, eyes are EOMI. Neck is supple nontender with midline trachea. Right neck surgical incision is visible and well-healed. He does have a faint bruit over his right carotid. His heart is regular, lungs are decreased throughout but clear. Abdomen is soft nontender with normoactive bowel sounds in all 4 quadrants. I do not appreciate a pulsatile mass. Brachial radial and femoral pulses are +3. Lower extremity distal pulses are +2. He has brisk capillary refill and no sign of distal ischemia
[2020-12-29] MEDS: LACTATED RINGER'S 1,000 ML IV SCH ×3 (09:02→18:12)
[2020-12-29] MEDS ORDERED: GLYCOPYRROLATE 0.2 MG/ML VIAL ONE (11:05)
[2020-12-29] MEDS ORDERED: ONDANSETRON INJ 2 MG/ML 2 ML VIAL ONE ×2 (11:05→15:26)
[2020-12-29] MEDS ORDERED: fentaNYL citrate 100 MCG/2 ML VIAL ONE (11:05)
[2020-12-29] MEDS ORDERED: NEOSTIGMINE METHYLSULFATE 1 MG/ML 10ML VIAL ONE (11:05)
[2020-12-29] MEDS ORDERED: DEXAMETHASONE SOD INJ 4 MG/ML VIAL ONE ×2 (11:05→15:26)
[2020-12-29] MEDS ORDERED: MIDAZOLAM HCL 1 MG/ML 2ML VIAL ONE (11:05)
[2020-12-29] MEDS ORDERED: PROPOFOL IV EMULSION 10 MG/ML 20 ML VIAL IV ONE (11:05)
[2020-12-29] MEDS ORDERED: LIDOCAINE 2% 2 ML VIAL/AMP(20MG/ML) INFIL ONE (11:05)
[2020-12-29] MEDS ORDERED: fentaNYL citrate 100 MCG/2 ML VIAL IV PRN (11:11)
[2020-12-29] MEDS ORDERED: ONDANSETRON INJ 2 MG/ML 2 ML VIAL IV PRN (11:11)
[2020-12-29] MEDS ORDERED: ATROPINE SULFATE 0.1 MG/ML 10ML SYR IV PRN (11:11)
[2020-12-29] MEDS ORDERED: LABETALOL HCL IV 5 MG/ML 20ML IV PRN (11:11)
--- NOTE | 2020-12-29 11:29 | History & Physical Bridge Note ---
Date of Service December 29, 2020 History & Physical Bridge Note I have examined the patient, reviewed the History & Physical and in the interval since the performance of the History & Physical I have noted the following changes of clinical significance: no changes noted
[2020-12-29] MEDS ORDERED: HEPARIN (PORCINE) 1000 UNIT/ML 10 ML (CATH LAB USE ONLY) ONE (11:42)
[2020-12-29] MEDS ORDERED: EPINEPHrine INJ 1 MG/ML AMP ONE (11:42)
[2020-12-29] MEDS ORDERED: BUPIVACAINE 0.5 % 5 MG/1 ML MPF 30ML VIAL ONE (11:42)
[2020-12-29] MEDS ORDERED: THROMBIN FOR SOLN 20000 UNIT KIT ONE (11:43)
[2020-12-29] MEDS ORDERED: GELATIN SPONGE SZ 100 ONE (11:43)
[2020-12-29] MEDS ORDERED: LIDOCAINE 1% LOCAL 20 ML VIAL ONE (11:43)
[2020-12-29] MEDS ORDERED: HEPARIN SOD (PORCINE) 1000 UNIT/ML ONE (15:04)
[2020-12-29] MEDS ORDERED: PHENYLEPHRINE HCL 10 MG/ML VIAL ONE (15:04)
[2020-12-29] MEDS ORDERED: PROTAMINE SULFATE 10 MG/ML 5 ML VIAL ONE (15:26)
[2020-12-29] MEDS ORDERED: SUGAMMADEX SODIUM 200 MG/2 ML VIAL IV ONE (15:38)
--- NOTE | 2020-12-29 15:50 | Operative Report ---
Post Operative Report Pre & Post Diagnosis Operation Date: 12/29/20 10:20 Pre-Op Diagnosis: Recurrent Right Internal Carotid Artery Stenosis Post-Op Diagnosis: Recurrent Right Internal Carotid Artery Stenosis I identified the patient and participated in the time-out.: Yes Procedure Operation Date: 12/29/20 10:20 Actual Procedures p Redo Right Carotid Endarterectomy with Gortex Interposition Graft(Right) - Cong Manuel MD Surgeon Cong Manuel MD Test Worker Radha Hutchins MD ; Gladys RUFFIN Estimated Blood Loss 175 Findings Consistent with Post-Op Diagnosis Specimens right carotid plaque Disposition Accompanied Patient To Recovery: No Indications This is a 70M with history of carotid artery stenosis and prior right carotid endarterectomy several years ago. He has recurrent stenosis of his right carotid artery. Description of Procedure The patient was taken to the operating room and placed in supine position. The patient's identity and surgical procedure were verified. After general anesthesia was accomplished the right side of the neck was prepped and draped in a sterile manner. A team timeout was performed including confirmation of the patient's identity, surgical site, and surgical procedure. A longitudinal neck incision was then made over the scar in the right neck from the patient's prior carotid endarterectomy, coursing along the medial border of the sternocleidomastoid muscle. The incision was taken down through the platysmal layer. The common carotid artery was then seen. The carotid arteries were encased in dense fibrous tissue given the patient's prior endarterectomy. The common carotid artery was dissected free down to the omohyoid muscle. The dissection was carried upward until the external carotid artery was seen. The external carotid was slung with a red rubber vessel loop. Next the dissection was carried up along the internal carotid artery.The suture line from the previous patch was seen. The hypoglossal nerve was seen and preserved. The dissection around the internal carotid artery was a difficult dissection as again dense scar tissue was present. While trying to get around the internal carotid artery proximally a defect was created in the posterolateral aspect of the internal carotid artery. The patient was then systemically heparinized and vascular clamps were applied to the internal, common, and external carotid arteries. A longitudinal arteriotomy was started on the common carotid artery and extended upward along the internal carotid artery. There was calcified plaque and intimal hyperplasia of the internal carotid artery origin causing narrowing. In the distal common carotid artery there was calcific plaque with intramural hemorrhage. A Sundt shunt was then placed in the internal, followed by the common carotid artery and held in place with Romeo clamps. There was good back bleeding seen from the internal carotid artery. The endarterectomy was then started in the appropriate plane on the common carotid artery. The endarterectomy was then carried up along the internal carotid artery till a nice feathering breakoff point was accomplished beyond the end of the plaque. The endarterectomy was then carried down further on the common carotid artery. At end of the arteriotomy, the plaque was then transected. Under loop magnification, all loose debris and flaps were removed. There was no distal flap seen at the end of the endarterectomy site. Given the location of the defect in the internal carotid on the posterolateral wall and the vessel narrowing given the intimal hyperplasia, the decision was made to perform interposition grafting from the common carotid artery to the internal carotid artery. The internal carotid artery was transected distal to the area of intimal hyperplasia, thus distal to the prior patch. A 6mm gore g raft was sewn in place using 6-0 prolene in a running fashion. Then, the anastomosis to the common carotid artery was performed in a similar fashion. Prior to completing the anastomosis on the common carotid artery, the doppler shunt was removed and the internal and common carotid arteries were reclamped. Backbleeding and forward bleeding was allowed to occur. The flow surface was irrigated with heparinized saline. The final few sutures were then placed and securely tied. The clamp was then removed off the common carotid artery. The clamp was then removed from the internal carotid artery. Bleeding was noted at the posterior aspect of the distal anastomosis. This could not be controlled with repair suture, so the patient was again heparinized and clamps were re-applied to the internal and common carotid arteries. The distal anastomosis was transected and the edges of the internal carotid artery stump were freshened. There was enough distance left in the graft so the anastomosis was repeated with 6-0 prolene in a running fashion. Prior to completing the anastomosis, the doppler shunt was removed and the internal and common carotid arteries were reclamped. Backbleeding and forward bleeding was allowed to occur. The flow surface was irrigated with heparinized saline. The final few sutures were then placed and securely tied. The clamp was then removed off the common carotid artery. The clamp was then removed from the internal carotid artery. Good distal flow was seen. Adequate hemostasis was seen of the anastomoses. The wound was inspected and adequate hemostasis was obtained. The wound was irrigated with antibiotic solution. It was then closed with a running 3-0 Vicryl suture for the platysmal layer and a 4-0 subcuticular Vicryl suture for the skin edges. Dermabond was used for dressing. The patient left the operating room in satisfactory condition and tolerated the procedure well. At the conclusion of the case, all instrument, sponge, and needle counts were correct. The patient tolerated the procedure well and without immediate complication. The patient was taken to the recovery room in satisfactory condition. Dr. Manuel was present and scrubbed for the entirety of the procedure. I attest to the content of the Intraoperative Record and any orders documented therein. Any exceptions are noted below.
--- NOTE | 2020-12-29 15:53 | Post Operative Brief Note ---
Immediate Post Op Note v1 Date of Surgery December 29, 2020 Pre & Post Diagnosis Operation Date: 12/29/20 10:20 Pre-Op Diagnosis: Recurrent Right Internal Carotid Artery Stenosis Post-Op Diagnosis: Recurrent Right Internal Carotid Artery Stenosis I identified the patient and participated in the time-out.: Yes Procedure Operation Date: 12/29/20 10:20 Actual Procedures p Redo Right Carotid Endarterectomy with Gortex Interposition Graft(Right) - Cong Manuel MD Surgeon Cong Manuel MD Survival Specialist Radha Hutchins MD ; Gladys RUFFIN Estimated Blood Loss 175 Findings Consistent with Post-Op Diagnosis Anesthesia Type General Complications none Disposition Accompanied Patient To Recovery: No Disposition: Recovery Room
[2020-12-29] MEDS ORDERED: LABETALOL HCL IV 5 MG/ML 20ML IV ONE (16:32)
[2020-12-29] MEDS ORDERED: MoRPHine SULFATE 4 MG/ML 1 ML CARP\\VIAL IV PRN (17:38)
[2020-12-29] MEDS ORDERED: MOMETASONE FUROATE 0.1% CR 15 GM TUBE EXT PRN (17:38)
--- NOTE | 2020-12-29 17:47 | Anesthesiology Progress Note ---
Date of Service December 29, 2020 Anesthesia Post Procedure Vital Signs Vital Signs: Temp Pulse Pulse Resp BP BP BP 12/29/20 17:31 97.5 F L 149/83 H 12/29/20 17:10 68 18 149/64 H 12/29/20 17:00 97.5 F L 65 15 169/84 H 12/29/20 16:50 66 15 172/81 H 12/29/20 16:40 68 20 165/92 H 12/29/20 16:30 67 14 166/83 H 12/29/20 16:21 97.0 F L 68 14 171/85 H 12/29/20 08:44 99.0 F 73 18 171/91 H 174/95 H BP Pulse Ox 12/29/20 17:31 97 12/29/20 17:10 162/76 H 98 12/29/20 17:00 169/73 H 99 12/29/20 16:50 168/74 H 99 12/29/20 16:40 172/80 H 100 12/29/20 16:30 163/78 H 100 12/29/20 16:21 100 12/29/20 08:44 96 Transfer of Care Handoff Completed per policy Notes Mental Status: alert / awake / arousable and participated in evaluation Patient Amnestic to Procedure: Yes Nausea / Vomiting: adequately controlled Pain: adequately controlled Airway Patency, RR, SpO2: stable & adequate BP & HR: stable & adequate Hydration State: stable & adequate Anesthetic Complications: no major complications apparent and Pt Satisfied with anesthetic care Notes: The patient had a left facial droop, tongue deviation to the right, and left upper extremity weakness. Dr. Manuel was at bedside and aware. The patient was otherwise stable to be discharged from PACU.
[2020-12-29] MEDS ORDERED: NAPROXEN 250 MG TAB PO PRN (17:51)
[2020-12-29] MEDS: methylPREDNISolone 10 MG in SYRINGE 0 ML IV SCH ×2 (18:14→23:25)
[2020-12-29 18:42] LABS: Basophils # (auto) 0.02 K/uL (0-0.2); Basophils % (auto) 0.1 %; Eosinophils # (auto) 0.01 K/uL (0-0.5); Eosinophils % (auto) 0.1 %; Hematocrit (blood only) 38.1 % (42-52); Hemoglobin 12.9 g/dL (14.0-18.0); Immature Granulocytes # (auto) 0.04 K/uL (0.00-0.02); Immature Granulocytes % (auto) 0.2 %; Lymphocytes # (auto) 1.77 K/uL (1.2-3.4); Lymphocytes % (auto) 10.4 %; Mean Corpuscular Hemoglobin 31.1 pg (25-34); Mean Corpuscular Hgb Conc 33.9 g/dL (32-36); Mean Corpuscular Volume 91.8 fL (80-100); Mean Platelet Volume 8.2 fL (7.4-10.4); Monocytes # (auto) 0.29 K/uL (0.11-0.59); Monocytes % (auto) 1.7 %; Neutrophils # (auto) 14.82 K/uL (1.4-6.5); Neutrophils % (auto) 87.5 %; Platelet Count 311 K/uL (130-400); RDW Coefficient of Variation 13.3 % (11.5-14.5); RDW Standard Deviation 44.8 fL (36.4-46.3); Red Blood Count 4.15 M/uL (4.7-6.1); White Blood Count 16.95 K/uL (4.8-10.8)
[2020-12-29] MEDS: traMADol HCL 50 MG TABLET PO PRN ×2 (19:49→23:53)
--- NOTE | 2020-12-29 20:11 | Critical Care Consultation ---
Date of Consultation December 29, 2020 History of Present Illness Reason for Consultation: Post carotid endarterectomy monitoring Attending Physician: Cong Manuel MD History of Present Illness 70-year-old Allergies Allergy/AdvReac Type Severity Reaction Status Date / Time codeine Allergy Mild Rash, hives Verified 12/29/20 08:42 homatropine Allergy Mild Rash Verified 12/29/20 08:42 [From Hycodan (with homatropin)] hydrocodone Allergy Mild Rash Verified 12/29/20 08:42 [From Hycodan (with homatropin)] amoxicillin AdvReac Intermediate Diarrhea, Verified 12/29/20 08:42 GI upset clavulanic acid AdvReac Intermediate Diarrhea, Verified 12/29/20 08:42 [From Augmentin] GI upset losartan AdvReac Intermediate Muscle Verified 12/29/20 08:42 cramping atorvastatin [From Lipitor] AdvReac Mild Myalgia Verified 12/29/20 08:42 omeprazole AdvReac Mild Sore Verified 12/29/20 08:42 "kidneys" (kidney crystals), cramping simvastatin [From Zocor] AdvReac Mild Myalgia Verified 12/29/20 08:42 Home Medications Medication Instructions Recorded Confirmed Type cyanocobalamin (vitamin B-12) 1,000 mcg PO PM tab 03/12/19 12/29/20 History 1,000 mcg tablet lutein 20 mg tablet 20 mg PO PM tab 03/12/19 12/29/20 History niacin 500 mg tablet 500 mg PO PM 03/12/19 12/29/20 History selenium 200 mcg capsule 200 mcg PO PM 03/12/19 12/29/20 History folic acid 400 mcg tablet 400 mcg PO PM 03/13/19 12/29/20 History lycopene 10 mg capsule 10 mg PO PM cap 05/01/19 12/29/20 History mometasone 0.1 % topical cream 1 appln TOP BID PRN gm 05/01/19 12/29/20 History zinc gluconate 50 mg tablet 50 mg PO PM 11/29/19 12/29/20 History naproxen sodium 220 mg capsule 220 mg PO BID PRN 12/10/19 12/29/20 History (Aleve) lisinopril 20 mg tablet 20 mg PO BID #180 tab 04/27/20 12/29/20 Rx melatonin 5 mg tablet 5 mg PO HS 04/27/20 12/29/20 History verapamil 120 mg tablet,extended 120 mg PO HS #90 tab 04/27/20 12/29/20 Rx release verapamil 240 mg tablet,extended 240 mg PO QAM #90 tab 04/27/20 12/29/20 Rx release carica papaya (Papaya Enzyme) 4 tab PO TID tab 10/27/20 12/29/20 History cholecalciferol (vitamin D3) 50 1,000 unit PO PM #30 tab 10/27/20 12/29/20 History mcg (2,000 unit) tablet letty root 325 mg-pyridoxine HCl 1.5 cap PO QPM cap 10/27/20 12/29/20 History (vitamin B6) 25 mg capsule lysine 500 mg tablet (L-Lysine) 500 mg PO QPM 10/27/20 12/29/20 History resveratrol 250 mg capsule 250 mg PO QPM 10/27/20 12/29/20 History Quercetin Otc 500 mg PO QPM 12/21/20 12/29/20 History aspirin 81 mg capsule 81 mg PO HS 12/25/20 12/29/20 History Patient History Medical History Anemia Arteriosclerosis of carotid artery s/p Right CEA (2003) BPH without obstruction/lower urinary tract symptoms Chronic rhinitis Degenerative disc disease Lower back Dyslipidemia Elevated prostate specific antigen (PSA) declined Urology Evaluation Headache, migraine Hearing loss Right ear History of cataract History of COVID-19 Possible COVID > spouse was positive 07/22/20, pt at that time had symptoms of body aches, mild fever, night sweats, sore throat (pt tested negative ten days after symptoms onset) > symptoms resolved Hypertension Kidney stones Migraine Obesity Stomach ulcer 1989 No known hx of blood transfusion Surgical History History of carotid endarterectomy Right (2003) History of cataract surgery Right History of esophagogastroduodenoscopy (EGD) History of tonsillectomy 1952 History of tooth extraction History of umbilical hernia repair 2009 History of ventral hernia repair Open ventral hernia repair (12/30/19): LMA#5, atraumatic at [facility] Hx of colonoscopy 2019 Family History Mother , age 67 Osteoporosis Crohn's disease Cardiac disorder Myocardial infarction Father , age 77 Leukemia Cancer Lymphoma Brother Peripheral vascular disease Hypertension Grandmother (Maternal) Family history of diabetes mellitus Social History Smoking Status: Former smoker Tobacco Type: Cigarettes Age Started Using Tobacco: 17; Age Quit Using Tobacco: 19; packs per day: 1; Years Smoked: 3; Smoking End Date: QUIT ; Second Hand Exposure: No (WORKING IN THE ); Do You Dip or Chew Tobacco: No; Hx Alcohol Use: No Hx Substance Use: No Preferred Language: Romanian Communication Ability: Effective Visual Impairment: Limited Hearing Ability: Hard of Hearing 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: No Beliefs That Will Affect Care: None marital status: Current Living Situation: Spouse current occupational status: retired 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 Other Information That Helps Us Care for You: No Feels Safe at Home: Yes Safety Concerns: Feels Safe At This Time Childhood Exposure to Second-Hand Smoke: No caffeine: Yes Dental Care, Regularly: Yes Physical Activity Frequency: 3-4 Times per Week Physical Activity Frequency Comment: walk Seatbelt Use: always Sunscreen Use: Yes Do you think of yourself as: straight/heterosexual Assistive Devices: Glasses Results & Data Results & Data ([facility]) Vital Signs (Past 12 Hours) Vital Signs Temp Pulse Pulse Resp BP BP BP 12/29/20 18:00 97.7 F 78 14 12/29/20 17:38 97.5 F L 67 14 12/29/20 17:31 97.5 F L 149/83 H 12/29/20 17:10 68 18 149/64 H 12/29/20 17:00 97.5 F L 65 15 169/84 H 12/29/20 16:50 66 15 172/81 H 12/29/20 16:40 68 20 165/92 H 12/29/20 16:30 67 14 166/83 H 12/29/20 16:21 97.0 F L 68 14 171/85 H 12/29/20 08:44 99.0 F 73 18 171/91 H 174/95 H BP Pulse Ox 12/29/20 18:00 172/92 H 96 12/29/20 17:38 149/83 H 98 12/29/20 17:31 97 12/29/20 17:10 162/76 H 98 12/29/20 17:00 169/73 H 99 12/29/20 16:50 168/74 H 99 12/29/20 16:40 172/80 H 100 12/29/20 16:30 163/78 H 100 12/29/20 16:21 100 12/29/20 08:44 96 Coding
[2020-12-29] MEDS: lisinopril 20 MG TAB PO SCH (20:46)
[2020-12-29] MEDS: CLINDAMYCIN 600 MG in DEXTROSE 5% 50 ML IV SCH (20:49)
[2020-12-29] MEDS ORDERED: RESVERATROL 250 MG PO SCH (21:00)
[2020-12-29] MEDS ORDERED: ASPIRIN 81 MG ECTAB PO SCH (21:00)
[2020-12-29] MEDS ORDERED: ZINC SULFATE 220 MG CAPSULE PO SCH (21:00)
[2020-12-29] MEDS ORDERED: PYRIDOXINE PO SCH (21:00)
[2020-12-29] MEDS ORDERED: VERAPAMIL HCL 120 MG TABCR PO SCH (21:00)
[2020-12-29] MEDS ORDERED: CHOLECALCIFEROL 1,000 UNITS 25 MCG TAB PO SCH (21:00)
[2020-12-29] MEDS ORDERED: FOLIC ACID 400 MCG TAB PO SCH (21:00)
[2020-12-29] MEDS ORDERED: NIACIN 500 MG TAB PO SCH (21:00)
[2020-12-29] MEDS ORDERED: CYANOCOBALAMIN 500 MCG TABLET (VITAMIN B-12) PO SCH (21:00)
[2020-12-29] MEDS ORDERED: NON-FORMULARY MEDICATION (Lycopene 10 mg capsule) PO SCH (21:00)
[2020-12-29] MEDS ORDERED: [UNRECOGNIZED DRUG - OTHER] PO SCH (21:00)
[2020-12-29] MEDS ORDERED: QUERCETIN 500 MG PO SCH (21:00)
[2020-12-29] MEDS ORDERED: MELATONIN 3 MG TAB PO SCH (21:00)
--- NOTE | 2020-12-29 21:40 | Critical Care Consultation ---
Date of Consultation December 29, 2020 Assessment & Plan (1) Recurrent stenosis of right carotid artery: Patient now presents to the ICU status post right endarterectomy POD 1. Patient does have some mild dysarthria which is new postop. Expect this is related to surgery and will likely resolve. No other neurological deficits A-line for continuous hemodynamic monitoring, avoid hypertension. Restarting home antihypertensives. Can add labetalol/hydralazine prn if needed Continue ASA Frequent neuro exams Continuous monitoring on telemetry (2) Hypertension: Continue Advair fentanyl and lisinopril A-line for continuous blood pressure monitoring following surgery. Avoid hypertension and keep blood pressure within parameters (3) Dyslipidemia: (4) BPH without obstruction/lower urinary tract symptoms: History of Present Illness Attending Physician: Cong Manuel MD History of Present Illness Patient is a 70-year-old maleWith past medical History including HTN, and recurrent carotid artery stenosis.Patient had undergone a right carotid endarterectomy in 2003. He presented to the vascular surgery clinic prior to this admission with symptoms of the right eye amaurosis And ultrasound showing right distal common carotid stenosis of 70%. Patient was scheduled for right endarterectomy for which he presents postop to the ICU today.On exam, patient is alert and oriented. He reports mild slurred speech which is new following surgery, And states that he feels he has decreased control of his tongue movement.He denies any other neurological deficits Including headache, dizziness,Syncopal events, facial droop, numbness or tingling, changes in vision, Or weakness. He denies recent illness, fevers, sore throat, shortness of breath, chest pain, nausea or vomiting, abdominal pain. Right anterior neck incision appears well approximated, without significant swelling or erythema. Patient admitted to the ICU for further monitoring overnight following right endarterectomy. Allergies Allergy/AdvReac Type Severity Reaction Status Date / Time codeine Allergy Mild Rash, hives Verified 01/11/21 11:21 homatropine Allergy Mild Rash Verified 01/11/21 11:21 [From Hycodan (with homatropin)] hydrocodone Allergy Mild Rash Verified 01/11/21 11:21 [From Hycodan (with homatropin)] amoxicillin AdvReac Intermediate Diarrhea, Verified 01/11/21 11:21 GI upset clavulanic acid AdvReac Intermediate Diarrhea, Verified 01/11/21 11:21 [From Augmentin] GI upset losartan AdvReac Intermediate Muscle Verified 01/11/21 11:21 cramping atorvastatin [From Lipitor] AdvReac Mild Myalgia Verified 01/11/21 11:21 omeprazole AdvReac Mild Sore Verified 01/11/21 11:21 "kidneys" (kidney crystals), cramping simvastatin [From Zocor] AdvReac Mild Myalgia Verified 01/11/21 11:21 Home Medications Medication Instructions Recorded Confirmed Type cyanocobalamin (vitamin B-12) 1,000 mcg PO PM tab 03/12/19 01/11/21 History 1,000 mcg tablet lutein 20 mg tablet 20 mg PO PM tab 03/12/19 01/11/21 History niacin 500 mg tablet 500 mg PO PM 03/12/19 01/11/21 History selenium 200 mcg capsule 200 mcg PO PM 03/12/19 01/11/21 History folic acid 400 mcg tablet 400 mcg PO PM 03/13/19 01/11/21 History lycopene 10 mg capsule 10 mg PO PM cap 05/01/19 01/11/21 History mometasone 0.1 % topical cream 1 appln TOP BID PRN gm 05/01/19 01/11/21 History zinc gluconate 50 mg tablet 50 mg PO PM 11/29/19 01/11/21 History naproxen sodium 220 mg capsule 220 mg PO BID PRN 12/10/19 01/11/21 History (Aleve) lisinopril 20 mg tablet 20 mg PO BID #180 tab 04/27/20 01/11/21 Rx melatonin 5 mg tablet 5 mg PO HS 04/27/20 01/11/21 History verapamil 120 mg tablet,extended 120 mg PO HS #90 tab 04/27/20 01/11/21 Rx release verapamil 240 mg tablet,extended 240 mg PO QAM #90 tab 04/27/20 01/11/21 Rx release carica papaya (Papaya Enzyme) 4 tab PO TID tab 10/27/20 01/11/21 History cholecalciferol (vitamin D3) 50 1,000 unit PO PM #30 tab 10/27/20 01/11/21 History mcg (2,000 unit) tablet letty root 325 mg-pyridoxine HCl 1.5 cap PO QPM cap 10/27/20 01/11/21 History (vitamin B6) 25 mg capsule lysine 500 mg tablet (L-Lysine) 500 mg PO QPM 10/27/20 01/11/21 History Quercetin Otc 500 mg PO QPM 12/21/20 01/11/21 History aspirin 81 mg capsule 81 mg PO HS 12/25/20 01/11/21 History Patient History Medical History Anemia Arteriosclerosis of carotid artery s/p Right CEA (2003) BPH without obstruction/lower urinary tract symptoms Chronic rhinitis Degenerative disc disease Lower back Dyslipidemia Elevated prostate specific antigen (PSA) declined Urology Evaluation Glossopharyngeal nerve palsy Headache, migraine Hearing loss Right ear History of cataract History of COVID-19 Possible COVID > spouse was positive 07/22/20, pt at that time had symptoms of body aches, mild fever, night sweats, sore throat (pt tested negative ten days after symptoms onset) > symptoms resolved Hypertension Kidney stones Migraine Obesity Stomach ulcer 1989 No known hx of blood transfusion Surgical History (Updated 01/11/21 @ 11:25 by LA Bennett) History of carotid endarterectomy Right (2003) History of cataract surgery Right History of esophagogastroduodenoscopy (EGD) History of tonsillectomy 1952 History of tooth extraction History of umbilical hernia repair 2009 History of ventral hernia repair Open ventral hernia repair (12/30/19): LMA#5, atraumatic at [facility] Hx of carotid angioplasty Hx of colonoscopy 2019 Family History Mother , age 67 Osteoporosis Crohn's disease Cardiac disorder Myocardial infarction Father , age 77 Leukemia Cancer Lymphoma Brother Peripheral vascular disease Hypertension Grandmother (Maternal) Family history of diabetes mellitus Social History Smoking Status: Former smoker Tobacco Type: Cigarettes Age Started Using Tobacco: 17; Age Quit Using Tobacco: 19; packs per day: 1; Years Smoked: 3; Second Hand Exposure: No (WORKING IN THE 1969'S); Hx Alcohol Use: No Hx Substance Use: No Preferred Language: Bulgarian Communication Ability: Effective Visual Impairment: Limited Hearing Ability: Hard of Hearing Gauge And Instrument Inspector Required: No Beliefs That Will Affect Care: None marital status: Current Living Situation: Spouse current occupational status: retired 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 Feels Safe at Home: Yes Childhood Exposure to Second-Hand Smoke: No caffeine: Yes Dental Care, Regularly: Yes Physical Activity Frequency: 3-4 Times per Week Physical Activity Frequency Comment: walk Seatbelt Use: always Sunscreen Use: Yes Do you think of yourself as: straight/heterosexual Assistive Devices: None Review of Systems Review of Systems: All systems reviewed & are unremarkable except as noted in HPI & below Physical Exam Constitutional: cooperative and comfortable Eyes: PERRL, conjunctivae normal, anicteric sclerae ENMT: external ear and nose normal, oropharynx normal Neck: trachea midline, no thyromegaly Respiratory: normal respiratory effort, lungs clear to auscultation Cardiovascular: RRR, no murmur, no edema Heart Sounds: normal S1 and normal S2 Extremities: normal capillary refill; no edema Gastrointestinal (Abdomen): normal bowel sounds, soft, nontender, no hepatosplenomegaly Musculoskeletal: no cyanosis or clubbing, extremities motor strength 5/5 Skin: no rashes, warm and dry Neurologic: PERRLA, EOMs intact, no facial droop. He does have mild dysarthria noted on exam.No other neurological deficits Psychiatric: A+Ox3, euthymic affect Results & Data Results & Data ([facility]) Vital Signs (Past 12 Hours) Vital Signs Temp Pulse Resp BP BP BP Pulse Ox 12/29/20 18:00 36.5 C 78 14 172/92 H 96 12/29/20 17:38 36.4 C L 67 14 149/83 H 98 12/29/20 17:31 36.4 C L 149/83 H 97 12/29/20 17:10 68 18 149/64 H 162/76 H 98 12/29/20 17:00 36.4 C L 65 15 169/84 H 169/73 H 99 12/29/20 16:50 66 15 172/81 H 168/74 H 99 12/29/20 16:40 68 20 165/92 H 172/80 H 100 12/29/20 16:30 67 14 166/83 H 163/78 H 100 12/29/20 16:21 36.1 C L 68 14 171/85 H 100 Coding Level of Care Code 33941 Inpt Consult Level 3 Diagnoses Hypertension I10 Recurrent stenosis of right carotid artery I65.21 Dyslipidemia E78.5 BPH without obstruction/lower urinary tract symptoms N40.0
[2020-12-29] MEDS ORDERED: hydrALAZINE HCL 20 MG/ML VIAL IV STA (22:44)
[2020-12-30] MEDS: LACTATED RINGER'S 1,000 ML IV SCH (02:42)
[2020-12-30] MEDS ORDERED: LABETALOL HCL IV 5 MG/ML 20ML IV STA (04:42)
[2020-12-30] MEDS: traMADol HCL 50 MG TABLET PO PRN (05:15)
[2020-12-30] MEDS ORDERED: ONDANSETRON INJ 2 MG/ML 2 ML VIAL IV PRN (05:46)
[2020-12-30] MEDS: methylPREDNISolone 10 MG in SYRINGE 0 ML IV SCH ×2 (05:56→11:17)
[2020-12-30] MEDS: CLINDAMYCIN 600 MG in DEXTROSE 5% 50 ML IV SCH (05:56)
[2020-12-30] MEDS: lisinopril 20 MG TAB PO SCH (08:28)
[2020-12-30] MEDS ORDERED: VERAPAMIL HCL 240 MG TABCR PO SCH (09:00)
--- NOTE | 2020-12-30 11:15 | Critical Care Progress Note ---
Date of Service December 30, 2020 Assessment & Plan (1) Recurrent stenosis of right carotid artery: Plan: Patient is currently stable. Continue aspirin. Blood pressure parameters per vascular surgery. Tolerating diet. He did have some discomfort of his tongue. Suspect glossopharyngeal palsy which should improve. Currently on steroids per vascular surgery. Disposition per vascular surgery. Thank you for the consult. We will continue to follow while in the ICU. (2) Glossopharyngeal nerve palsy: Admission and Anticipated Discharge Date Admission Date: December 29, 2020 Subjective Patient seen and examined at bedside. He notes that he had some trouble with his tongue including swallowing since surgery. This is improving. Denies any other complaint. No fevers or chills. Review of Systems Review of Systems: All systems reviewed & are unremarkable except as noted in HPI & below Physical Exam Constitutional: cooperative and comfortable Eyes: PERRL, conjunctivae normal, anicteric sclerae ENMT: external ear and nose normal, oropharynx normal Neck: trachea midline, no thyromegaly Respiratory: normal respiratory effort, lungs clear to auscultation Cardiovascular: RRR, no murmur, no edema Heart Sounds: normal S1 and normal S2 Extremities: normal capillary refill; no edema Gastrointestinal (Abdomen): normal bowel sounds, soft, nontender, no hepatosplenomegaly Musculoskeletal: no cyanosis or clubbing, extremities motor strength 5/5 Skin: no rashes, warm and dry Neurologic: PERRLA, EOMs intact, no facial droop..No other neurological deficits Psychiatric: A+Ox3, euthymic affect Results & Data Results & Data ([facility]) Vital Signs (Past 12 Hours) Vital Signs Temp Pulse Resp BP Pulse Ox 12/30/20 08:20 98.8 F 93 H 16 148/81 H 96 12/30/20 07:20 86 10 L 145/80 H 97 12/30/20 04:20 97.7 F 95 H 12 139/81 92 12/30/20 03:20 97 H 13 136/71 83 L 12/30/20 02:25 93 H 17 160/89 H 95 12/30/20 01:20 92 H 15 140/71 88 L 12/30/20 00:20 97.7 F 90 19 144/69 H 90 12/30/20 00:00 107 H 12/29/20 23:20 83 12 151/82 H 95 Vital signs, labs and imaging personally reviewed Coding Level of Care Code 62883 Subseq Hosp Care Lvl 2 Diagnoses Recurrent stenosis of right carotid artery I65.21 Glossopharyngeal nerve palsy G52.1
[2020-12-30 11:54] VITALS: TEMP 98.6; O2SAT 93
--- NOTE | 2020-12-30 11:59 | Surgery Progress Note ---
Date of Service December 30, 2020 Assessment & Plan (1) Recurrent stenosis of right carotid artery: Plan: Doing well from his redo CEA. Will d/c home today. (2) Glossopharyngeal nerve palsy: Plan: He has slight deviation to the right of his tongue. This has somewhat improved since immediately post op. Discussed exercising his tongue. This was most likely caused from manipulation of the nerves of the neck during his redo CEA. Should recover over the next 2 weeks. Admission and Anticipated Discharge Date Admission Date: December 29, 2020 Subjective Patient's only complaint is a feeling of his tongue not moving like it use to. No other focal deficits. He is able to swallow and eat without choking Physical Exam Constitutional: WD/WN, vitals as above Neck: trachea midline Respiratory: normal respiratory effort; no respiratory distress Cardiovascular: Rate/Rhythm: regular rate and regular rhythm Musculoskeletal: no cyanosis or clubbing, extremities motor strength 5/5 Skin: + incision (dry and clean without swelling) Neurologic: CN's II-XI intact bilaterally and moves all extremities Cranial Nerves: tongue midline (slight deviation to right, improved since yesterday) Psychiatric: Orientation: alert and oriented x 3 Results & Data ([facility]) Vital Signs (Past 12 Hours) Vital Signs Temp Pulse Resp BP Pulse Ox 12/30/20 08:20 37.1 C 93 H 16 148/81 H 96 12/30/20 07:20 86 10 L 145/80 H 97 12/30/20 04:20 36.5 C 95 H 12 139/81 92 12/30/20 03:20 97 H 13 136/71 83 L 12/30/20 02:25 93 H 17 160/89 H 95 12/30/20 01:20 92 H 15 140/71 88 L 12/30/20 00:20 36.5 C 90 19 144/69 H 90 12/30/20 00:00 107 H
[2020-12-30 12:16] VITALS: BP 149/64; PULSE 78
--- NOTE | 2021-01-06 13:24 | Discharge Summary ---
Date of Service December 30, 2020 Admission HPI Per Admitting Provider Mr. Carmichael is an elderly male who presents to vascular surgery clinic as a new patient in consultation for right carotid artery restenosis noted on his annual carotid ultrasound, as well as symptoms of right eye amaurosis which occurred about 6 weeks ago. Patient underwent a right carotid endarterectomy with bovine [place] [address] Shailesh Richey. He states that that as far as he is aware, his ultrasounds since his procedure have been okay. His results from carotid ultrasound in October 2019 do not indicate any evidence of restenosis. His ultrasound from last week indicates right distal common carotid and bulb stenosis of over 70% by velocity criteria. Patient states that he was doing his normal daily activities and developed a sudden onset of a veras shaped mera area around 7:00 in his right eye vision. He states that it lasted between 10 and 30 seconds, and then completely resolved. He states that he had symptoms of "tunnel vision" in his right eye before undergoing his carotid endarterectomy in 2003. He states this was similar but not exactly the same. He denies any other neurological concerns including unilateral headache, unilateral extremity weakness numbness or tingling, facial droop, difficulty speaking or swallowing, dizziness, other concerns. Admission Exam Per Admitting Provider Constitutional: In general patient is a healthy-appearing well-nourished well- developed elderly male no distress. He is alert and oriented without any focal deficits. Head is normocephalic atraumatic, eyes are EOMI. Neck is supple nontender with midline trachea. Right neck surgical incision is visible and well-healed. He does have a faint bruit over his right carotid. His heart is regular, lungs are decreased throughout but clear. Abdomen is soft nontender with normoactive bowel sounds in all 4 quadrants. I do not appreciate a pulsatile mass. Brachial radial and femoral pulses are +3. Lower extremity dis vicki pulses are +2. He has brisk capillary refill and no sign of distal ischemia Principal Diagnosis 1. s/p Redo R CEA with prosthetic interposition graft 2. R carotid restenosis Discharge Exam Constitutional WD/WN, vitals as above Neck trachea midline Respiratory normal respiratory effort; no respiratory distress Cardiovascular Rate/Rhythm: regular rate and regular rhythm Musculoskeletal no cyanosis or clubbing, extremities motor strength 5/5 Skin + incision (dry and clean without swelling) Neurologic CN's II-XI intact bilaterally and moves all extremities Cranial Nerves: tongue midline (slight deviation to right, improved since yesterday) Psychiatric Orientation: alert and oriented x 3 Discharge Data Allergies Allergy/AdvReac Type Severity Reaction Status Date / Time codeine Allergy Mild Rash, hives Verified 12/29/20 08:42 homatropine Allergy Mild Rash Verified 12/29/20 08:42 [From Hycodan (with homatropin)] hydrocodone Allergy Mild Rash Verified 12/29/20 08:42 [From Hycodan (with homatropin)] amoxicillin AdvReac Intermediate Diarrhea, Verified 12/29/20 08:42 GI upset clavulanic acid AdvReac Intermediate Diarrhea, Verified 12/29/20 08:42 [From Augmentin] GI upset losartan AdvReac Intermediate Muscle Verified 12/29/20 08:42 cramping atorvastatin [From Lipitor] AdvReac Mild Myalgia Verified 12/29/20 08:42 omeprazole AdvReac Mild Sore Verified 12/29/20 08:42 "kidneys" (kidney crystals), cramping simvastatin [From Zocor] AdvReac Mild Myalgia Verified 12/29/20 08:42 Consultations 12/29/20 07:53 Consult Hand Packer/Packager Routine Procedures Performed Operation Date: 12/29/20 10:20 Actual Procedures p Redo Right Carotid Endarterectomy with Gortex Interposition Graft(Right) - Cong Manuel MD Hospital Course (1) Recurrent stenosis of right carotid artery: Doing well from his redo CEA POD #1. Will d/c home today. (2) Glossopharyngeal nerve palsy: He has slight deviation to the right of his tongue. This has somewhat improved since immediately post op. Discussed exercising his tongue. This was most likely caused from manipulation of the nerves of the neck during his redo CEA. Should recover over the next 2 weeks. Total Time Total Time Spent Total Time Spent (In Minutes): 0 Discharge Plan Discharge Items Patient Disposition: Home - Self-Care Reason For Visit: Recurrent Right Internal Carotid Artery Stenosis Discharge Diagnosis: Recurrent right internal carotid artery stenosis. Redo right carotid endart erectomy Activity: Per Instructions section Lifting: Gradually increase as tolerated Bathing Comment: May shower starting tomorrow Exercise/Sports: Gradually increase as tolerated Driving/Machine Use: Resume 3 days after discharge Non-emergency contact: Surgeon Call non-emergency contact if: your temperature is above 101.5, your wound has increased redness, your wound has increased drainage and your wound pain has increased Follow-up/Referrals: Santana Dickinson DO [Primary Care Provider] - 01/07/21 11:30 am (Please follow up with Dr. Dickinson on 01/07/21 at 11:30 am. Please arrive to the office at 11:15 am for your appointment. If you are unable to keep this appointment, please call the office to reschedule at [phone]. ) Diet: Heart Healthy Addtl Attending Provider Instructions: SPECIAL CARE INSTRUCTIONS: Medications: * Continue to take Aspirin as directed. Incision Care: * You may shower, but do not rub incision. You may let the warm soapy water run over it. Be sure to dry the incision well after bathing. * Do not shave directly over the incision until it is healed. * DO NOT IMMERSE THE INCISION IN A TUB/POOL/etc. UNTIL HEALED. Restrictions: * Do not drive for at least one week or if you are still taking any narcotic pain medication. * Do not lift anything heavier than a gallon of milk for one week after going home. Possible Complications: * Numbness - It is normal to have some numbness around the incision. Numbness can extend beyond the incision to areas of the neck, ear and face. The numbness is due to bruising of nerves during the surgery and will gradually improve over a period of months. * Hoarseness/Difficulty Speaking and Swallowing - The bruising of nerves in the neck can also cause a hoarse voice, difficulty speaking or swallowing. This may improve over time, HOWEVER, if it continues for more than a few days please contact our office ([phone]). * Excessive Swelling - There will be some swelling immediately after surgery which usually resolves within one week. If you notice that the swelling is getting worse, notify your surgeon ([phone]). * Drainage/Bleeding - If there is any drainage or bleeding, it should be a very small amount (less than a teaspoon per day). If you have excessive bleeding or drainage from the incision, call your surgeon ([phone]) right away. ACTIVATION OF EMERGENCY MEDICAL SYSTEM: Call 911, immediately, if you experience any of the following: Warning Signs and Symptoms of Stroke: * Sudden numbness or weakness of the face, arm or leg, especially on one side of the body * Sudden confusion, trouble speaking or understanding * Sudden trouble seeing in one or both eyes * Sudden trouble walking, dizziness, loss of balance or coordination * Sudden severe headache with no cause Do not delay calling 911 if you experience any warning signs or symptoms of a stroke. Delay in seeking medical attention may affect what treatments can be given to you. Risk Factors for Stroke: You can reduce your chances of stroke by working with your medical provider to adopt a healthy lifestyle. Some specific ways to lower your chance of stroke are: * If you are a smoker, now is the time to stop smoking cigarettes * If you are diabetic, improve the control of your blood sugars * Avoid excessive amounts of alcohol * Control high blood pressure * Lose weight if you are overweight * Be sure to lead an active lifestyle * Eat a healthy diet low in salt, cholesterol and fat You should know about other risk factors for stroke that you are unable to control. These include: * Age 55 years or older * Male gender * Certain racial groups: , or / * Family History of Stroke, Mini stroke or Heart Attack * Sickle Cell Disease You will be receiving a call from the Vascular Surgery Nurse after you are discharged. FOLLOW UP VISIT: It is important for you to keep your follow up appointments with your medical provider. Keep any scheduled doctor appointments. Call [phone] to schedule a follow up appointment if one not already scheduled. Pending Studies at Discharge: No Stand-Alone Forms: My [facility], Smoking Cessation Medications and DC Order Prescriptions: New tramadol 50 mg tablet 50 mg PO Q8H PRN (Reason: pain) Qty: 7 RF: 0 Continued lisinopril 20 mg tablet 20 mg PO BID Qty: 180 RF: 3 verapamil 240 mg tablet extended release 240 mg PO QAM Qty: 90 RF: 3 verapamil 120 mg tablet extended release 120 mg PO HS Qty: 90 RF: 3 carica papaya [Papaya Enzyme] Tablet 4 tab PO TID RF: 0 lysine [L-Lysine] 500 mg tablet 500 mg PO QPM RF: 0 resveratrol 250 mg capsule 250 mg PO QPM RF: 0 letty root-pyridoxine HCl(B6) 325-25 mg capsule 1.5 cap PO QPM RF: 0 lutein 20 mg tablet 20 mg PO PM RF: 0 niacin 500 mg tablet 500 mg PO PM RF: 0 selenium 200 mcg capsule 200 mcg PO PM RF: 0 cyanocobalamin (vitamin B-12) 1,000 mcg tablet 1,000 mcg PO PM RF: 0 folic acid 400 mcg tablet 400 mcg PO PM RF: 0 lycopene 10 mg capsule 10 mg PO PM RF: 0 mometasone 0.1 % cream 1 appln TOP BID PRN (Reason: Pain) RF: 0 cholecalciferol (vitamin D3) 50 mcg (2,000 unit) tablet 1,000 unit PO PM Qty: 30 RF: 0 melatonin 5 mg tablet 5 mg PO HS RF: 0 zinc gluconate 50 mg tablet 50 mg PO PM RF: 0 naproxen sodium [Aleve] 220 mg Capsule 220 mg PO BID PRN (Reason: Pain) RF: 0 Quercetin Otc 500 mg PO QPM RF: 0 aspirin 81 mg Capsule 81 mg PO HS RF: 0 Discharge Orders: Discharge Order (Routine); Ordered 12/30/20 Ordered By: Cong Manuel Admission Data Admit Date/Time: 12/29/20 07:51 Attending Provider: Cong Manuel Admit Provider: Cong Manuel Primary Care Provider: Santana Dickinson Other Providers: Molina Borrero ; Santana Verde ; Oskar Priest ; Malvin Ulrich Chase B. ; Collin Sanchez ; Eleanor Contreras Other Interventions: Discharge Summary Assessment (RN) Last Done: 12/30/20 12:14
== END 2020-12-30 14:10 | disposition home or self-care (01) | DRG 39 ==
LOC: ASU 07:55 → 1E 07:56